=== PATIENT | female | born 2000 ===

== ENCOUNTER 2020-01-30 21:29 | Emergency (ER) | payer SELFPAY ==
--- NOTE | 2020-01-30 21:45 | EDM.PDOC ---
ED HPI GENERAL MEDICAL PROBLEM - General Source of Information: Reports: Patient History Limitations: Reports: No Limitations - History of Present Illness Onset: Today <JanineYakov Holt - Last Filed: 01/30/20 21:52> abdomen Pain Score (Numeric/FACES): 7 <FadiaLuis - Last Filed: 01/30/20 23:20> - General Chief Complaint: [employer] Problem Stated Complaint: POSSIBLE MISCARRIAGE Time Seen by Provider: 01/30/20 21:38 - History of Present Illness INITIAL COMMENTS - FREE TEXT/NARRATIVE: HISTORY AND PHYSICAL: History of present illness: Patient is a 19-year-old female who presents to the emergency room with concerns of possible miscarriage during . Patient's last menstrual period was 11/2019 and was seen today at [facility]. She was informed that she is approximately 5-1/2 weeks gestation. At that time she did have some light vaginal bleeding which they told her to continue to monitor. She has been in the car over the past 5 hours and states that she went to use the bathroom she had passed a few large clots in the toilet. She has developed some bilateral lower abdominal cramping. Mild nausea which she states has been normal over the past few weeks. Patient denies any fever, chills, headache, c hange in vision, syncope or near syncope. Denies any chest pain, back pain, shortness of breath or cough. Denies any vomiting, diarrhea, constipation or dysuria. Patient has been eating and drinking appropriately. , P:0. Review of systems: As per history of present illness and below otherwise all systems reviewed and negative. Past medical history: As per history of present illness and as reviewed below otherwise noncontributory. Surgical history: As per history of present illness and as reviewed below otherwise noncontributory. Social history: See social history for further information Family history: As per history of present illness and as reviewed below otherwise noncontributory. Physical exam: General: Well-developed and well-nourished 19-year-old female. Alert and orie nted. Nontoxic-appearing and in no acute distress. HEENT: Atraumatic, normocephalic, pupils equal and reactive bilaterally, negative for conjunctival pallor or scleral icterus, mucous membranes moist, TMs normal bilaterally, throat clear, neck supple, nontender, trachea midline. No drooling or trismus noted. No meningeal signs. No hot potato voice noted. Lungs: Clear to auscultation, breath sounds equal bilaterally, chest nontender. Heart: S1S2, regular rate and rhythm without overt murmur Abdomen: Soft, nondistended, diffuse tenderness to the low abdomen bilaterally. Negative for masses or hepatosplenomegaly. Negative for costovertebral tenderness. Pelvis: Stable nontender. Genitourinary: This was done with consent and a deposit clerk at the bedside. Normal appearing external genitalia. Cervical office is visualized and closed. There is blood in the vaginal vault, no clots are noted. Patient tolerated well. No cervical motion tenderness. Skin: Intact, warm, dry. No lesions or rashes noted. Extremities: Atraumatic, moves all extremities per self without difficulty or deficits, negative for cords or calf pain. Neurovascular unremarkable. Neuro: Awake, alert, oriented. Cranial nerves II through XII unremarkable. Cerebellum unremarkable. Motor and sensory unremarkable throughout. Exam nonfocal. Notes: 2199 Dr Loaiza assumed care of this patient and will follow and disposition appropriately. Diagnostics: CBC, CMP, UA, Quant HCG, Transvaginal US Therapeutics: NS, Zofran Impression: Threatened miscarriage Definitive disposition and diagnosis as appropriate pending reevaluation and review of above. (Yakov Mehta) 11:16 PM January 30, 2020 Signout received at 10 PM, patient seen and evaluated by me. Patient currently is resting comfortably in bed and reports no current abdominal pain. Ultrasound obtained revealing a 6-week 4-day intrauterine with a possible small subchorionic hemorrhage. heart rate is 106 which is likely attributable to early . I have discussed the results with the patient including the cause of the bleeding. I have discussed with her that any bleeding during an early is considered a threatened miscarriage. I have discussed with her that although she is having some bleeding, that a small amount of breakthrough bleeding from a subchorionic hemorrhage is generally normal and snider s not usually result in miscarriage. Patient has been instructed on return precautions including increased bleeding of more than 2-3 pads per hour for more than 2 to 3 hours in the row. Patient knows to return to the ED if she should have any excessive bleeding, shortness of breath, dizziness, or feelings of passing out. Abd: Soft, nondistended, no rebound/guarding, no psoas or obturator signs, no tenderness at Mcberney's point, no Lawler's sign. Pt does not present with an exam that would be consistent with an acute surgical abdomen at this time, normoactive bowel sounds, nontender to palpation. Reassessment at the time of disposition demonstrates that the patient is in no acute distress. The patient has remained stable throughout the entire ED visit and is without objective evidence for acute process requiring urgent intervention or hospitalization. The patient is stable for discharge, counseling is provided as documented above, discussed symptomatic treatment and specific conditions for return. I have spoken with the patient/caregive and discussed todays findings, in addition to providing specific details for the plan of care. Questions are answered and there is agreement with the plan. (Luis Loaiza) ED ROS GENERAL - Review of Systems Review Of Systems: Comprehensive ROS is negative, except as noted in HPI. <Yakov Mehta E - Last Filed: 01/30/20 21:52> ED EXAM - Physical Exam Exam: See Below (See dictation) <Yakov Mehta E - Last Filed: 01/30/20 21:52> Course - Vital Signs Last Recorded V/S: Last Vital Signs Temp 96.7 F L 01/30/20 21:37 Pulse 89 01/30/20 21:37 Resp 17 01/30/20 21:37 BP 126/75 01/30/20 21:37 Pulse Ox 97 01/30/20 21:37 - Orders/Labs/Meds Orders: Active Orders 24 hr Category Date Time Status CULTURE URINE [RM] Stat Lab 01/30/20 21:46 Received Labs: Laboratory Tests 01/30/20 01/30/20 01/30/20 Range/Units 21:46 22:00 22:00 WBC 13.86 H (4.0-11.0) K/uL RBC 4.46 (4.30-5.90) M/uL Hgb 14.4 (12.0-16.0) g/dL Hct 42.2 (36.0-46.0) % MCV 94.6 (80.0-98.0) fL MCH 32.3 H (27.0-32.0) pg MCHC 34.1 (31.0-37.0) g/dL RDW Std Deviation 40.6 (28.0-62.0) fl RDW Coeff of Ileana 12 (11.0-15.0) % Plt Count 273 (150-400) K/uL MPV 9.40 (7.40-12.00) fL Neut % (Auto) 66.4 (48.0-80.0) % Lymph % (Auto) 22.7 (16.0-40.0) % [place] % (Auto) 10.6 (0.0-15.0) % Eos % (Auto) 0.2 (0.0-7.0) % Baso % (Auto) 0.1 (0.0-1.5) % Neut # (Auto) 9.2 H (1.4-5.7) K/uL Lymph # (Auto) 3.2 H (0.6-2.4) K/uL [place] # (Auto) 1.5 H (0.0-0.8) K/uL Eos # (Auto) 0.0 (0.0-0.7) K/uL Baso # (Auto) 0.0 (0.0-0.1) K/uL Nucleated RBC % 0.0 /100WBC Nucleated RBCs # 0 K/uL Sodium 135 L (136-145) mmol/L Potassium 3.3 L (3.5-5.1) mmol/L Chloride 100 (98-107) mmol/L Carbon Dioxide 24.3 (21.0-32.0) mmol/L BUN 11 (7.0-18.0) mg/dL Creatinine 0.8 (0.6-1.0) mg/dL Est Cr Clr Drug Dosing 88.72 mL/min Estimated GFR (MDRD) > 60.0 ml/min Glucose 120 H (74-106) mg/dL Calcium 9.2 (8.5-10.1) mg/dL Total Bilirubin 0.8 (0.2-1.0) mg/dL AST 23 (15-37) IU/L ALT 36 (14-63) IU/L Alkaline Phosphatase 49 (46-116) U/L Total Protein 8.1 (6.4-8.2) g/dL Albumin 4.3 (3.4-5.0) g/dL Globulin 3.8 (2.6-4.0) g/dL Albumin/Globulin Ratio 1.1 (0.9-1.6) HCG, Quant 81934.0 mIU/mL Urine Color YELLOW Urine Appearance SLT CLOUDY Urine pH 5.5 (5.0-8.0) Ur Specific [place] >= 1.030 (1.001-1.035) Urine Protein TRACE H (NEGATIVE) mg/dL Urine Glucose (UA) NEGATIVE (NEGATIVE) mg/dL Urine Ketones 40 H (NEGATIVE) mg/dL Urine Occult Blood LARGE H (NEGATIVE) Urine Nitrite NEGATIVE (NEGATIVE) Urine Bilirubin MODERATE H (NEGATIVE) Urine Ictotest QNS Urine Urobilinogen 0.2 (<2.0) EU/dL Ur Leukocyte Esterase TRACE H (NEGATIVE) Urine RBC 5-9 (0-2/HPF) Urine WBC 0-3 (0-5/HPF) Ur Epithelial Cells MODERATE (NONE-FEW) Urine Bacteria 2+ H (NEGATIVE) Urine Mucus MODERATE (NONE-MOD) Meds: Medications Discontinued Medications Generic Name Dose Route Start Last Admin Trade Name Akashq PRN Reason Stop Dose Admin Sodium Chloride 1,000 mls @ 999 mls/hr 01/30/20 21:52 01/30/20 22:00 Normal Saline IV 01/30/20 22:52 999 mls/hr STAT ONE Administration Ondansetron HCl 4 mg 01/30/20 21:52 01/30/20 22:05 Zofran IVPUSH 01/30/20 21:53 4 mg ONETIME ONE Administration Departure <Yakov Mehta - Last Filed: 01/30/20 21:52> - Departure Time of Disposition: 23:18 Condition: Good - Discharge Information *PRESCRIPTION DRUG MONITORING PROGRAM REVIEWED*: Not Applicable *COPY OF PRESCRIPTION DRUG MONITORING REPORT IN PATIENT CHIQUI: Not Applicable <Luis Loaiza - Last Filed: 01/30/20 23:20> - Departure Disposition: Home, Self-Care 01 Clinical Impression: Threatened miscarriage in early , Subchorionic hemorrhage in first trimester - Discharge Information Instructions: Threatened Miscarriage Referrals: PCP,None [Primary Care Provider] - Forms: ED Department Discharge Additional Instructions: You are seen in the ER today secondary to vaginal bleeding during your first trimester. The ultrasound today revealed a 6-week 4-day intrauterine with a heart rate of 106. They did identify a "possible small subchorionic hemorrhage" on the ultrasound. Please return to the ED if he should start having excessive bleeding of more than 2-3 pads per hour for more than 2 to 3 hours in a row. Please return to the ED if you start feeling any increased abdominal pain, shortness of breath, chest pain, or feelings of nearly passing out. Please make an appointment to see your FI[employer]IST doctor within the next week for reevaluation of your symptoms. The following information is given to patients seen in the emergency department who are being discharged to home. This information is to outline your options for follow-up care. We provide all patients seen in our emergency department with a follow-up referral. The need for follow-up, as well as the timing and circumstances, are variable depending upon the specifics of your emergency department visit. If you don't have a primary care physician on staff, we will provide you with a referral. We always advise you to contact your personal physician following an emergency department visit to inform them of the circumstance of the visit and for follow-up with them and/or the need for any referrals to a consulting specialist. The emergency department will also refer you to a specialist when appropriate. This referral assures that you have the opportunity for follow-up care with a specialist. All of these measure are taken in an effort to provide you with optimal care, which includes your follow-up. Under all circumstances we always encourage you to contact your private physician who remains a resource for coordinating your care. When calling for follow-up care, please make the office aware that this follow-up is from your recent emergency room visit. If for any reason you are refused follow-up, please contact the [facility] Emergency Department at and asked to speak to the emergency department charge nurse. Sepsis Event Note (ED) - Focused Exam Vital Signs: Vital Signs Temp Pulse Resp BP Pulse Ox 01/30/20 21:37 96.7 F L 89 17 126/75 97
[2020-01-30] MEDS ORDERED: Ondansetron 4 MG/2 ML SDV IVPUSH ONE (21:52)
[2020-01-30] MEDS ORDERED: Sodium Chloride 0.9% 1,000 ML IV ONE (21:52)
--- NOTE | 2020-01-30 22:39 | US ---
First trimester obstetrical ultrasound: Multiple real-time images were obtained transvaginally. Comparison: No previous study from current . Dates: LMP: LMP given as 12/13/19, JERMAIN 09/18/20, gestational age 6 weeks 6 days Current ultrasound: JERMAIN 09/21/20, gestational age 6 weeks 3 days Single intrauterine gestation is seen. Small pole is seen as well as yolk sac. Small subchorionic hemorrhage is noted. Maternal ovaries are felt to be within normal limits. Measurements: Mean sac diameter: 1.68 cm - 6 weeks 4 days [place]-rump length: 4.68 mm - 6 weeks 2 days Heart rate: 106 BPM Impression: 1. Single intrauterine gestation. Dates as noted above. 2. Possible small subchorionic hemorrhage. 3. Low heart rate most likely relating to early gestational age of . Diagnostic code #2 Study was dictated in MDT
[2020-01-30 22:50] LABS: BLOOD UREA NITROGEN,BUN 11 mg/dL (7.0-18.0); CARBON DIOXIDE,CO2 24.3 mmol/L (21.0-32.0); CHLORIDE,CL 100 mmol/L (98-107); GLUCOSE RANDOM 120 mg/dL (74-106); POTASSIUM,K 3.3 mmol/L (3.5-5.1); SODIUM,NA 135 mmol/L (136-145)
== END 2020-01-30 23:30 | disposition home or self-care (01) ==
LOC: MW.ED 21:29
DX: O20.0 Threatened abortion (principal); Z3A.01 Less than 8 weeks gestation of pregnancy
CPT/HCPCS: 36415; 76817; 80053; 81001; 84702; 85025; 87086; 96374; 99284; J2405; J7030; 99283